=== PATIENT | male | born 1965 | race Caucasian/White ===

== ENCOUNTER 2016-03-26 06:15 | Day surgery (SDC) | payer MEDICARE, OTHER ==
[2016-03-21 09:26] VITALS: BMI 40.4
[~2016-03-26 06:15] MED LIST: ASPIRIN 325 MG TAB PO ONE; SODIUM CHLORIDE 0.9% 1,000 ML in EMPTY BAG 1 BAG IV ONE
[2016-03-26 07:02] VITALS: RESP 16; TEMP 97.8
[2016-03-26] MEDS ORDERED: ALPRAZolam 0.25 MG TAB ONE (07:13)
[2016-03-26] MEDS ORDERED: HYDROcodone/APAP 10-325MG 1 EACH TAB ONE ×2 (07:14→13:23)
[2016-03-26 07:17] LABS: Glucose,Whole Blood 107 mg/dL (75-99)
[2016-03-26] MEDS ORDERED: MIDAZOLAM 2 MG/2 ML VIAL IVP ONE (07:40)
[2016-03-26] MEDS ORDERED: diphenhydrAMINE 50 MG/ML 1 ML VIAL IVP ONE (07:40)
[2016-03-26] MEDS ORDERED: LIDOCAINE 2% INJ 20 MG/ML SQ ONE (07:44)
[2016-03-26] MEDS ORDERED: VERAPAMIL SYRINGE (5 MG/10 ML) INTRAARTER ONE (07:48)
[2016-03-26] MEDS ORDERED: HEPARIN SODIUM 1,000 UNIT/ML VIAL IV ONE (07:51)
[2016-03-26] MEDS ORDERED: IOHEXOL 350 MG/ML 100 ML BOTTLE INJ ONE (08:11)
[2016-03-26] MEDS ORDERED: RX INFO: IV CONTRAST WAS GIVEN 1 EACH MISC MISCELLANE PRN (08:17)
[2016-03-26] MEDS ORDERED: SODIUM CHLORIDE 0.9% 1,000 ML IV SCH (08:30)
[2016-03-26 08:31] LABS: Glucose,Whole Blood 111 mg/dL (75-99)
--- NOTE | 2016-03-26 08:33 | CC ---
DATE OF SERVICE: INDICATION: Unstable angina. PROCEDURE NOTE: After obtaining informed consent, left heart catheterization and coronary angiogram are performed via the right radial artery. The right coronary artery was engaged using 5-Mongolian JR4 catheter and the left was engaged using Ultimate 2. Initially we attempted to access the left coronary artery using a JR4 unsuccessfully. Patient tolerated the procedure well without any obvious immediate complications and radial artery hemostasis was obtained by the standard protocol. FINDINGS: 1. HEMODYNAMICS: Left ventricular end-diastolic pressure is 12 to 14 mm. There is no significant gradient across the aortic valve. 2. LEFT VENTRICULOGRAM: Left ventriculogram was not performed. 3. ANGIOGRAPHIC DATA: LEFT MAIN CORONARY ARTERY: Left main coronary artery is normal size vessel and is free of stenosis. It divides into left anterior descending coronary artery and circumflex coronary artery. LAD and its branches, circumflex coronary artery and its branches are free of significant stenosis. There is mild nonobstructive CAD noted in the circ and the LAD. Right coronary artery is a large dominant vessel and it shows mild atherosclerotic plaque. CONCLUSIONS: 1. Mild nonobstructive coronary artery disease. 2. Normal left ventricular end-diastolic pressures. PLAN: I reviewed angiographic data with the patient and told him that his chest discomfort is noncardiac in origin and his management is going to be in the form optimal medical therapy.
[2016-03-26 13:26] VITALS: PULSE 60
[2016-03-26 14:24] VITALS: BP 110/62
== END 2016-03-26 14:22 | disposition home or self-care (01) ==
LOC: CATHCVL 06:15
PROVIDERS: ATTEND Internal Medicine Cardiovascular Disease
DX: I25.110 Atherosclerotic heart disease of native coronary artery with unstable angina pectoris (principal); I10 Essential (primary) hypertension; E78.2 Mixed hyperlipidemia; E11.9 Type 2 diabetes mellitus without complications; Z79.1 Long term (current) use of non-steroidal anti-inflammatories (NSAID); Z79.82 Long term (current) use of aspirin; Z79.891 Long term (current) use of opiate analgesic; Z79.899 Other long term (current) drug therapy
CPT/HCPCS: 93458; C1769; C1894; J2001; J2250; J1200; Q9967; J1644

== ENCOUNTER 2018-04-29 11:16 | Observation (INO) | payer MEDICARE, OTHER ==
[2018-04-29] MEDS ORDERED: NITROGLYCERIN OINT 1 INCH/GM PACKET TOPICAL STA (12:26)
[2018-04-29] MEDS ORDERED: ASPIRIN 81 MG PO STA (12:26)
--- NOTE | 2018-04-29 12:44 | ED ---
General Adult HPI - General Chief complaint: Chest Pain Stated complaint: chest pain x 7 days progressively worse Time Seen by Provider: 04/29/18 11:40 Source: patient, RN notes reviewed Mode of arrival: ambulatory Limitations: no limitations - History of Present Illness Initial comments: This is a 53-year-old male with a past medical history significant for diabetes hypertension high cholesterol. Patient also states he smokes a lot of marijuana. Patient comes in today because he is having increasing chest pain which radiates to his back. Patient states there is some shortness of breath and some of the chest pain is occasionally worse with exertion. Patient denies any recent fever chills or cough. Patient denies any lightheadedness dizziness or near syncopal episode. Patient denies any headache patient denies any numbness weakness. Patient denies abdominal pain. Patient denies any nausea vomiting diarrhea. Patient denies any increased swelling in the legs or calf tenderness. - Related Data Home Medications Medication Instructions Recorded Confirmed Albuterol Inhaler [Ventolin Hfa 1 - 2 puff INHALATION RT-Q6H PRN 03/21/16 Inhaler] Albuterol Nebulized [Ventolin 2.5 mg INHALATION RT-Q6H 03/21/16 04/29/18 Nebulized] Aspirin 81 mg PO DAILY 03/21/16 04/29/18 Atorvastatin [Lipitor] 20 mg PO HS 03/21/16 04/29/18 Fenofibrate Nanocrystallized 145 mg PO DAILY 03/21/16 04/29/18 [Fenofibrate] Lisinopril [Zestril] 10 mg PO DAILY 03/21/16 04/29/18 Pregabalin [Lyrica] 75 mg PO BID 03/21/16 04/29/18 Fluticasone/Salmeterol [Advair Hfa 2 puff INHALATION RT-BID 04/29/18 04/29/18 230-21 Mcg Inhaler] HYDROcodone/APAP 10-325MG [[place] 1 tab PO Q4H 04/29/18 04/29/18 10-325] Ibuprofen [Motrin] 800 mg PO TID 04/29/18 04/29/18 Nitroglycerin Sl Tabs [Nitrostat] 0.4 mg SL DIRECTED 04/29/18 04/29/18 Ranitidine HCl [Zantac] 150 mg PO BID 04/29/18 04/29/18 busPIRone HCL [Buspar] 15 mg PO BID 04/29/18 04/29/18 metFORMIN HCL [Glucophage] 1,000 mg PO DAILY 04/29/18 04/29/18 Allergies Allergy/AdvReac Type Severity Reaction Status Date / Time No Known Allergies Allergy Verified 04/29/18 12:23 Review of Systems ROS Statement: Those systems with pertinent positive or pertinent negative responses have been documented in the HPI. ROS Other: All systems not noted in ROS Statement are negative. Past Medical History Past Medical History: Asthma, COPD, Diabetes Mellitus, GERD/Reflux, Hyperlipidemia, Hypertension, Neurologic Disorder, Osteoarthritis (OA) Additional Past Medical History / Comment(s): MIGRAINE HEADACHE, History of Any Multi-Drug Resistant Organisms: None Reported Past Surgical History: Appendectomy, Back Surgery, Heart Catheterization, Orthopedic Surgery Additional Past Surgical History / Comment(s): RIGHT KNEE ARTHROSCOPIC, RIGHT ANKLE Past Anesthesia/Blood Transfusion Reactions: No Reported Reaction Past Psychological History: Anxiety Smoking Status: Former smoker Past Alcohol Use History: None Reported Past Drug Use History: Marijuana - Past Family History Mother Family Medical History: No Reported History General Exam - General Exam Comments Initial Comments: GENERAL: Patient is well-developed and well-nourished. Patient is nontoxic and well- hydrated and is in mild distress. ENT: Neck is soft and supple. No significant lymphadenopathy is noted. Oropharynx is clear. Moist mucous membranes. Neck has full range of motion without eliciting any pain. EYES: The sclera were anicteric and conjunctiva were pink and moist. Extraocular movements were intact and pupils were equal round and reactive to light. Eyelids were unremarkable. PULMONARY: Unlabored respirations. Good breath sounds bilaterally. No audible rales rhonchi or wheezing was noted. CARDIOVASCULAR: There is a regular rate and rhythm without any murmurs gallops or rubs. ABDOMEN: Soft and nontender with normal bowel sounds. SKIN: Skin is clear with no lesions or rashes and otherwise unremarkable. NEUROLOGIC: Patient is alert and oriented x3. Cranial nerves II through XII are grossly intact. Motor and sensory are also intact. Normal speech, volume and content. Symmetrical smile. MUSCULOSKELETAL: Normal extremities with adequate strength and full range of motion. LYMPHATICS: No significant lymphadenopathy is noted PSYCHIATRIC: Normal psychiatric evaluation. Normal interpersonal interactions appears functionally intact in deals appropriately with others. No signs of depression. No signs of anxiety. Limitations: no limitations Course Vital Signs 04/29/18 04/29/18 04/29/18 11:38 13:30 14:00 Temperature 97.9 F Pulse Rate 62 51 L 53 L Respiratory 18 14 21 Rate Blood Pressure 103/59 105/73 103/59 O2 Sat by Pulse 96 97 97 Oximetry 04/29/18 04/29/18 14:30 15:00 Temperature Pulse Rate 54 L 52 L Respiratory 16 16 Rate Blood Pressure 98/86 97/55 O2 Sat by Pulse 97 98 Oximetry Medical Decision Making - Medical Decision Making EKG shows sinus bradycardia 56 bpm NV interval 250 QRS is 94 Q-T intervals 440 QTC is 424. Patient's EKG shows no ST segment elevation or depression or T wave abnormalities are noted. Patient's chest x-ray showed no acute abnormality. Patient was given heparin emergency department because of his significant risk factors and is presenting symptoms. I spoke with Dr. Hope he agreed to admit the patient admitted the patient I consult cardiology continued heparin and aspirin and Nitropaste on the floor. - Lab Data Result diagrams: 04/29/18 12:36 04/29/18 12:36 Lab Results 04/29/18 04/29/18 04/29/18 Range/Units 12:36 12:36 12:36 WBC 7.5 (3.8-10.6) k/uL RBC 5.13 (4.30-5.90) m/uL Hgb 15.0 (13.0-17.5) gm/dL Hct 45.9 (39.0-53.0) % MCV 89.4 (80.0-100.0) fL MCH 29.2 (25.0-35.0) pg MCHC 32.6 (31.0-37.0) g/dL RDW 13.9 (11.5-15.5) % Plt Count 324 (150-450) k/uL Neutrophils % 51 % Lymphocytes % 35 % Monocytes % 6 % Eosinophils % 4 % Basophils % 1 % Neutrophils # 3.9 (1.3-7.7) k/uL Lymphocytes # 2.7 (1.0-4.8) k/uL Monocytes # 0.4 (0-1.0) k/uL Eosinophils # 0.3 (0-0.7) k/uL Basophils # 0.1 (0-0.2) k/uL PT (9.0-12.0) sec INR (<1.2) APTT (22.0-30.0) sec Sodium 140 (137-145) mmol/L Potassium 5.0 (3.5-5.1) mmol/L Chloride 110 H (98-107) mmol/L Carbon Dioxide 20 L (22-30) mmol/L Anion Gap 10 mmol/L BUN 18 (9-20) mg/dL Creatinine 0.86 (0.66-1.25) mg/dL Est GFR (CKD-EPI)AfAm >90 (>60 ml/min/1.73 sqM) Est GFR (CKD-EPI)NonAf >90 (>60 ml/min/1.73 sqM) Glucose 85 (74-99) mg/dL Calcium 9.5 (8.4-10.2) mg/dL Magnesium 1.9 (1.6-2.3) mg/dL Total Bilirubin 0.7 (0.2-1.3) mg/dL AST 61 H (17-59) U/L ALT 84 H (21-72) U/L Alkaline Phosphatase 62 (38-126) U/L Total Creatine Kinase 102 (55-170) U/L CK-MB (CK-2) 0.8 (0.0-2.4) ng/mL CK-MB (CK-2) Rel Index 0.8 Troponin I <0.012 (0.000-0.034) ng/mL Total Protein 7.5 (6.3-8.2) g/dL Albumin 4.2 (3.5-5.0) g/dL 04/29/18 Range/Units 12:36 WBC (3.8-10.6) k/uL RBC (4.30-5.90) m/uL Hgb (13.0-17.5) gm/dL Hct (39.0-53.0) % MCV (80.0-100.0) fL MCH (25.0-35.0) pg MCHC (31.0-37.0) g/dL RDW (11.5-15.5) % Plt Count (150-450) k/uL Neutrophils % % Lymphocytes % % Monocytes % % Eosinophils % % Basophils % % Neutrophils # (1.3-7.7) k/uL Lymphocytes # (1.0-4.8) k/uL Monocytes # (0-1.0) k/uL Eosinophils # (0-0.7) k/uL Basophils # (0-0.2) k/uL PT 10.3 (9.0-12.0) sec INR 1.0 (<1.2) APTT 26.2 (22.0-30.0) sec Sodium (137-145) mmol/L Potassium (3.5-5.1) mmol/L Chloride (98-107) mmol/L Carbon Dioxide (22-30) mmol/L Anion Gap mmol/L BUN (9-20) mg/dL Creatinine (0.66-1.25) mg/dL Est GFR (CKD-EPI)AfAm (>60 ml/min/1.73 sqM) Est GFR (CKD-EPI)NonAf (>60 ml/min/1.73 sqM) Glucose (74-99) mg/dL Calcium (8.4-10.2) mg/dL Magnesium (1.6-2.3) mg/dL Total Bilirubin (0.2-1.3) mg/dL AST (17-59) U/L ALT (21-72) U/L Alkaline Phosphatase (38-126) U/L Total Creatine Kinase (55-170) U/L CK-MB (CK-2) (0.0-2.4) ng/mL CK-MB (CK-2) Rel Index Troponin I (0.000-0.034) ng/mL Total Protein (6.3-8.2) g/dL Albumin (3.5-5.0) g/dL Critical Care Time Critical Care Time: Yes Total Critical Care Time: 35 Disposition Clinical Impression: Unstable angina pectoris Disposition: ADMITTED IP TO THIS HOSP Referrals: Piero Hyatt DO [Primary Care Provider] - 1-2 days Time of Disposition: 15:43
[2018-04-29 13:04] LABS: Basophils # (A) 0.1 k/uL (0-0.2); Basophils % (A) 1 %; Eosinophils # (A) 0.3 k/uL (0-0.7); Eosinophils % (A) 4 %; HCT 45.9 % (39.0-53.0); Lymphocytes # (A) 2.7 k/uL (1.0-4.8); Lymphocytes % (A) 35 %; MCH 29.2 pg (25.0-35.0); MCHC 32.6 g/dL (31.0-37.0); MCV 89.4 fL (80.0-100.0); Mean Platelet Volume 6.5; Monocytes # (A) 0.4 k/uL (0-1.0); Monocytes % (A) 6 %; Neutrophils # (A) 3.9 k/uL (1.3-7.7); Neutrophils % (A) 51 %; Platelet Count 324 k/uL (150-450); RBC 5.13 m/uL (4.30-5.90); RDW 13.9 % (11.5-15.5); WBC 7.5 k/uL (3.8-10.6)
[2018-04-29 13:12] LABS: Partial Thromboplastin Time 26.2 sec (22.0-30.0); Prothrombin Time 10.3 sec (9.0-12.0)
[2018-04-29 13:18] LABS: ALT 84 U/L (21-72); AST 61 U/L (17-59); Albumin 4.2 g/dL (3.5-5.0); Alkaline Phosphatase 62 U/L (38-126); Anion Gap 10 mmol/L; Blood Urea Nitrogen 18 mg/dL (9-20); Calcium 9.5 mg/dL (8.4-10.2); Carbon Dioxide 20 mmol/L (22-30); Chloride 110 mmol/L (98-107); Glucose 85 mg/dL (74-99); Magnesium 1.9 mg/dL (1.6-2.3); Sodium 140 mmol/L (137-145); Total Bilirubin 0.7 mg/dL (0.2-1.3); Total Protein 7.5 g/dL (6.3-8.2)
[2018-04-29 13:21] LABS: Creatine Kinase 102 U/L (55-170)
[2018-04-29 13:34] LABS: Creatine Kinase MB 0.8 ng/mL (0.0-2.4); Troponin I <0.012 ng/mL (0.000-0.034)
--- NOTE | 2018-04-29 13:48 | XR ---
EXAMINATION TYPE: XR chest 2V DATE OF EXAM: 04/29/2018 COMPARISON: None INDICATION: Chest pain TECHNIQUE: Frontal and lateral views of the chest are obtained. FINDINGS: The heart size is normal. The pulmonary vasculature is normal. The lungs are clear. IMPRESSION: 1. No acute pulmonary process.
[2018-04-29] MEDS ORDERED: KETOROLAC 30 MG/ML 1 ML VIAL IVP STA (14:14)
[2018-04-29] MEDS ORDERED: HEPARIN SODIUM,PORCINE 5,000 UNIT/ML 1 ML VIAL IV ONE (15:40)
[2018-04-29] MEDS ORDERED: NITROGLYCERIN SL TABS 0.4 MG TAB SUBLINGUAL PRN (15:43)
[2018-04-29] MEDS ORDERED: HEPARIN SOD,PORK IN 0.45% NACL 25,000 UNIT in 0.45% NACL 1 250ML.BAG IV SCH (15:45)
[2018-04-29 16:47] VITALS: RESP 18
[2018-04-29 16:47] LABS: Glucose,Whole Blood 123 mg/dL (75-99)
[2018-04-29 18:34] VITALS: BMI 39.2
[2018-04-29 19:20] LABS: Creatine Kinase 88 U/L (55-170)
[2018-04-29 19:34] LABS: Creatine Kinase MB 0.8 ng/mL (0.0-2.4); Troponin I <0.012 ng/mL (0.000-0.034)
[2018-04-29 20:27] LABS: Glucose,Whole Blood 99 mg/dL (75-99)
[2018-04-29] MEDS: busPIRone HCl 5 MG TAB PO SCH (20:41)
[2018-04-29] MEDS: NITROGLYCERIN OINT 1 INCH/GM PACKET TOPICAL SCH (20:41)
[2018-04-29] MEDS: HYDROcodone/APAP 10-325MG 1 EACH TAB PO PRN (20:42)
[2018-04-29] MEDS: FAMOTIDINE 20 MG TAB PO SCH (20:42)
[2018-04-29] MEDS: PREGABALIN 75 MG CAP PO SCH (20:42)
[2018-04-29] MEDS ORDERED: ATORVASTATIN 20 MG TAB PO SCH (21:00)
[2018-04-29 23:16] LABS: Hemoglobin A1C 7.4 % (4.0-6.0)
[2018-04-29 23:59] LABS: Creatine Kinase 94 U/L (55-170)
[2018-04-30 00:11] LABS: Creatine Kinase MB 0.8 ng/mL (0.0-2.4); Troponin I <0.012 ng/mL (0.000-0.034)
--- NOTE | 2018-04-30 00:11 | P.HPIM ---
History of Present Illness H&P Date: 04/29/18 Chief Complaint: Chest pain Patient is a 53-year-old male with a known history of hypertension, hyperlipidemia, diabetes type 2 [id number], asthma/COPD and also migraine headache, medical marijuana use for chronic low back pain and history of back surgery came to ER with complaints of retrosternal chest pain. Patient had appointment with his PCP today. Patient did complain of chest pain radiating to the left shoulder. Patient did have an EKG at PCPs office and sent to Hospital for further evaluation. Patient has been having dull chest pain on and off for the past few weeks. Patient was also having sweating on and off as well. Denied any fever or chills. No cough or sputum production. No headache or dizziness or lightheadedness. No leg swelling. Patient says that she had a cardiac catheterization about 2 years back. No PCI was done. EKG showed sinus bradycardia Chest x-ray showed no acute cardiopulmonary process Review of Systems Constitutional: Patient denies any fever or chills . No generalized weakness or weight loss. Abdomen: Patient denied nausea vomiting and diarrhea and abdominal pain. Cardiovascular: Patient does have dull chest pain with radiation. No short of breath no palpitations. Respiratory: patient denied any cough is from production. No shortness of breath Neurologic: Patient denied any numbness or tingling headache. Musculoskeletal: Patient denies any complaints of joint swelling or deformity. Skin: Negative Psychiatric: Negative Endocrine: No heat or cold intolerance. No recent weight gain. Genitourinary: No dysuria or hematuria. All other 14 point ROS negative except the above Past Medical History Past Medical History: Asthma, COPD, Diabetes Mellitus, GERD/Reflux, Hyperlipidemia, Hypertension, Neurologic Disorder, Osteoarthritis (OA) Additional Past Medical History / Comment(s): MIGRAINE HEADACHE, History of Any Multi-Drug Resistant Organisms: None Reported Past Surgical History: Appendectomy, Back Surgery, Heart Catheterization, Orthopedic Surgery Additional Past Surgical History / Comment(s): RIGHT KNEE ARTHROSCOPIC, RIGHT ANKLE Past Anesthesia/Blood Transfusion Reactions: No Reported Reaction Past Psychological History: Anxiety Smoking Status: Former smoker Past Alcohol Use History: None Reported Past Drug Use History: Marijuana - Past Family History Mother Family Medical History: No Reported History Father Family Medical History: Myocardial Infarction ([place]) Additional Family Medical History / Comment(s): from mi in his 70's Medications and Allergies Home Medications Medication Instructions Recorded Confirmed Type Albuterol Inhaler [Ventolin Hfa 1 - 2 puff INHALATION RT-Q6H PRN 03/21/16 History Inhaler] Albuterol Nebulized [Ventolin 2.5 mg INHALATION RT-Q6H 03/21/16 04/29/18 History Nebulized] Aspirin 81 mg PO DAILY 03/21/16 04/29/18 History Atorvastatin [Lipitor] 20 mg PO HS 03/21/16 04/29/18 History Fenofibrate Nanocrystallized 145 mg PO DAILY 03/21/16 04/29/18 History [Fenofibrate] Lisinopril [Zestril] 10 mg PO DAILY 03/21/16 04/29/18 History Pregabalin [Lyrica] 75 mg PO BID 03/21/16 04/29/18 History Fluticasone/Salmeterol [Advair Hfa 2 puff INHALATION RT-BID 04/29/18 04/29/18 History 230-21 Mcg Inhaler] HYDROcodone/APAP 10-325MG [[place] 1 tab PO Q4H 04/29/18 04/29/18 History 10-325] Ibuprofen [Motrin] 800 mg PO TID 04/29/18 04/29/18 History Nitroglycerin Sl Tabs [Nitrostat] 0.4 mg SL DIRECTED 04/29/18 04/29/18 History Ranitidine HCl [Zantac] 150 mg PO BID 04/29/18 04/29/18 History busPIRone HCL [Buspar] 15 mg PO BID 04/29/18 04/29/18 History metFORMIN HCL [Glucophage] 1,000 mg PO DAILY 04/29/18 04/29/18 History Allergies Allergy/AdvReac Type Severity Reaction Status Date / Time No Known Allergies Allergy Verified 04/29/18 12:23 Physical Exam Vitals: Vital Signs Temp Pulse Pulse Resp BP BP Pulse Ox 04/29/18 17:06 98 04/29/18 16:45 97.5 F L 50 L 18 101/64 97 04/29/18 16:00 98.9 F 58 L 16 120/65 95 04/29/18 15:00 52 L 16 97/55 98 04/29/18 14:30 54 L 16 98/86 97 04/29/18 14:00 53 L 21 103/59 97 04/29/18 13:30 51 L 14 105/73 97 04/29/18 11:38 97.9 F 62 18 103/59 96 Intake and Output 04/29/18 04/29/18 04/29/18 06:59 14:59 22:59 Other: Voiding Method Toilet # Voids 1 Weight 127.459 kg PHYSICAL EXAMINATION: Patient is lying in the bed comfortably, no acute distress, awake alert and oriented.. HEENT: Normocephalic. Neck is supple. Pupils reactive. Nostrils clear. Oral cavity is moist. Ears reveal no drainage. Neck reveals no JVD, carotid bruits, or thyromegaly. CHEST EXAMINATION: Trachea is central. Symmetrical expansion. Bibasilar diminished air entry. Lung martínez clear to auscultation and percussion. CARDIAC: Normal S1, S2 with no gallops. No murmurs ABDOMEN: Soft. Bowel sounds normal. No organomegaly. No abdominal bruits. Extremities: reveal no edema. No clubbing or cyanosis Neurologically awake, alert, oriented x3 with well-coordinated movements. No focal deficits noted Skin: No rash or skin lesions. Psychiatric: Coperative. Nonsuicidal Musculoskeletal: No joint swelling or deformity. Normal range of motion. Results CBC & Chem 7: 04/29/18 12:36 04/29/18 12:36 Labs: Abnormal Lab Results - Last 24 Hours (Table) 04/29/18 04/29/18 Range/Units 12:36 16:36 Chloride 110 H (98-107) mmol/L Carbon Dioxide 20 L (22-30) mmol/L POC Glucose (mg/dL) 123 H (75-99) mg/dL AST 61 H (17-59) U/L ALT 84 H (21-72) U/L Thrombosis Risk Factor Assmnt - DVT/VTE Prophylaxis DVT/VTE Prophylaxis: Pharmacologic Prophylaxis ordered Assessment and Plan Assessment: Chest pain possible unstable angina History of nonobstructive coronary artery disease. Catheterization 2 years ago Diabetes type 2 nausea and dependent Hypertension Hyperlipidemia Migraine headache Asthma/COPD Previous history of smoking Medical marijuana use Chronic back pain and history of back surgery Anxiety Plan: Patient will be continued on heparin drip. Continue with aspirin statins. Cardiology was consulted. Continue with home blood pressure medications and diabetic medications along with insulin sliding scale. Pain management. Further recommendations based on the clinical course. Time with Patient: Greater than 30
[2018-04-30] MEDS: NITROGLYCERIN OINT 1 INCH/GM PACKET TOPICAL SCH ×2 (01:03→05:14)
[2018-04-30] MEDS: ALBUTEROL NEBULIZED 2.5 MG/3 ML INHALATION SCH ×3 (01:18→13:26)
[2018-04-30] MEDS: HYDROcodone/APAP 10-325MG 1 EACH TAB PO PRN ×2 (03:15→13:22)
[2018-04-30 07:16] LABS: Cholesterol 111 mg/dL (<200); HDL Cholesterol 22 mg/dL (40-60); LDL Cholesterol,Calculated 42 mg/dL (0-99); Triglycerides 236 mg/dL (<150)
[2018-04-30] MEDS ORDERED: SYMBICORT 160-4.5 MCG INHALER INHALATION SCH (08:00)
[2018-04-30 08:01] LABS: Glucose,Whole Blood 112 mg/dL (75-99)
[2018-04-30] MEDS ORDERED: FENOFIBRATE 160 MG TAB PO SCH (09:00)
[2018-04-30] MEDS ORDERED: ASPIRIN 325 MG TAB PO SCH (09:00)
[2018-04-30] MEDS ORDERED: ASPIRIN 81 MG PO SCH (09:00)
[2018-04-30] MEDS ORDERED: metFORMIN 500 MG TAB PO SCH (09:00)
[2018-04-30] MEDS ORDERED: LISINOPRIL 10 MG TAB PO SCH (09:00)
[2018-04-30] MEDS ORDERED: DOBUTamine DRIP for NUC MED 500 MG in DEXTROSE/WATER 1 250ML.BAG IV ONE (11:34)
[2018-04-30 11:53] LABS: Glucose,Whole Blood 104 mg/dL (75-99)
[2018-04-30 12:19] VITALS: BP 115/78; TEMP 97.8
[2018-04-30] MEDS: PREGABALIN 75 MG CAP PO SCH (13:19)
[2018-04-30] MEDS: busPIRone HCl 5 MG TAB PO SCH (13:19)
[2018-04-30] MEDS: FAMOTIDINE 20 MG TAB PO SCH (13:19)
[2018-04-30 13:29] VITALS: PULSE 60
--- NOTE | 2018-04-30 13:51 | ECHOS ---
STRESS ECHOCARDIOGRAM INDICATIONS: Chest pain. BASELINE HEART RATE: 59 BASELINE BLOOD PRESSURE: 97/61 MAXIMUM HEART RATE: 140 MAXIMUM BLOOD PRESSURE: 113/48 85% MPHR: 144 100% MPHR: 169 MAXIMUM STAGE REACHED: 5 TOTAL EXERCISE TIME: 14:15 CLINICAL INFORMATION: Patient was given dobutamine infusion according to the standard protocol. Peak heart rate of 140, was achieved. Maximum blood pressure of 113/48 mmHg was noted. Resting EKG shows normal sinus rhythm with normal NV interval and QRS duration and normal ST-T waves. No ST-segment depression suggestive of ischemia is noted. The baseline echocardiographic images reveals normal left ventricular chamber size with normal left ventricular systolic function at the peak dose of dobutamine infusion. Normal increase in the wall thickness and contractility is noted. FINAL IMPRESSION: This dobutamine stress echocardiographic study is negative for stress-induced ischemia. EKG portion of the stress test is not suggestive of ischemia. MMODL / IJN: [id number] /
--- NOTE | 2018-04-30 14:05 | ECHOF ---
Referral Reason:chest pain MEASUREMENTS -------- HEIGHT: 180.3 cm WEIGHT: 127.5 kg BP: RVIDd: 2.7 cm (< 3.3) IVSd: 1.0 cm (0.6 - 1.1) LVIDd: 4.8 cm (3.9 - 5.3) LVPWd: 1.2 cm (0.6 - 1.1) IVSs: 1.8 cm LVIDs: 3.0 cm LVPWs: 1.8 cm LAESV Index (A-L): 18.35 ml/m Ao Diam: 3.1 cm (2.0 - 3.7) AV Cusp: 1.9 cm (1.5 - 2.6) LA Diam: 4.3 cm (2.7 - 3.8) MV EXCURSION: 21.866 mm (> 18.000) MV EF SLOPE: 104 mm/s (70 - 150) EPSS: 0.6 cm MV E Mg: 0.99 m/s MV DecT: 208 ms MV A Mg: 0.79 m/s MV E/A Ratio: 1.25 RAP: 5.00 mmHg RVSP: 22.24 mmHg FINDINGS -------- Sinus rhythm. This was a technically difficult study with suboptimal views. The left ventricular size is normal. There is borderline concentric left ventricular hypertrophy. Overall left ventricular systolic function is low-normal with, an EF between 50 - 55 %. The right ventricle is normal in size and function. Normal LA size by volume 22+/-6 ml/m2. The right atrium is normal in size. Lumason used The aortic valve is trileaflet and appears structurally normal. There is trace mitral regurgitation. Trace tricuspid regurgitation present. The right ventricular systolic pressure, as measured by Dopp ler, is 22.24mmHg. Pulmonic valve appears structurally normal. The aortic root size is normal. IVC Not well visulized. The pericardium is normal. CONCLUSIONS -------- 1. Sinus rhythm. 2. This was a technically difficult study with suboptimal views. 3. The left ventricular size is normal. 4. There is borderline concentric left ventricular hypertrophy. 5. Overall left ventricular systolic function is low-normal with, an EF between 50 - 55 %. 6. The right ventricle is normal in size and function. 7. Normal LA size by volume 22+/-6 ml/m2. 8. The right atrium is normal in size. 9. Lumason used 10. The aortic valve is trileaflet and appears structurally normal. 11. There is trace mitral regurgitation. 12. Trace tricuspid regurgitation present. 13. The right ventricular systolic pressure, as measured by Doppler, is 22.24mmHg. 14. Pulmonic valve appears structurally normal. 15. The aortic root size is normal. 16. IVC Not well visulized. 17. The pericardium is normal. RECORDER GRAVITY PROSPECTING: Lore Ceballos RDCS
--- NOTE | 2018-04-30 14:09 | P.CRDCN ---
History of Present Illness Consult date: 04/30/18 Consult reason: chest pain Chief complaint: Dull midsternal chest pain. History of present illness: This is a 53-year-old male who presented today complaints of dull mid-sternal chest pain with radiation to his back. Patient states he has a history of asthma, diabetes, and hypertension, high cholesterol and prior cardiac catheterization. Pt laying in bed with no acute distress. Patient states he smokes 1 ounce of marijuana every 2 days. Patient has a history of cardiac cath in 2017 with mild non-obstructive CAD. Patient also states he had a catheterization at [facility] in [place] in July 2017, will obtain records. Patient states he has asthma flares often and continues to smoke marijuana. Patient states he is not sure if the chest pain is from asthma flare or cardiac reasons. EKG done shows SB, rate of 56 beats per minute. Troponins are normal x 1. Chest x-ray showed within normal limit]. No recent echo. Review of Systems At the time of my exam: CONSTITUTIONAL: Denies fever. Denies chills. EYES: Denies blurred vision. Denies vision changes. Denies eye pain. EARS, NOSE, MOUTH & THROAT: Denies headache. Denies sore throat. Denies ear pain. CARDIOVASCULAR: Reports mid-sternal chest pain that radiated to scapula. Reports shortness of breath. Reports chest pain worse with activity and exertion. Denies orthopnea. Denies PND. Denies palpitations. RESPIRATORY: Reports cough. GASTROINTESTINAL: Denies abdominal pain. Denies diarrhea. Denies constipation. Denies nausea. Denies vomiting. MUSCULOSKELETAL: Denies myalgias. INTEGUMENTARY: Denies pruitis. Denies rash. NEUROLOGIC: Denies numbness. Denies tingling. Denies weakness. PSYCHIATRIC: Denies anxiety. Denies depression. ENDOCRINE: Denies fatigue. Denies weight change. Denies polydipsia. Denies polyurina. GENITOURINARY: Denies burning, hematuria or urgency with micturation. HEMATOLOGIC: Denies history of anemia. Denies bleeding. Past Medical History Past Medical History: Asthma, COPD, Diabetes Mellitus, GERD/Reflux, Hyperlipidemia, Hypertension, Neurologic Disorder, Osteoarthritis (OA) Additional Past Medical History / Comment(s): MIGRAINE HEADACHE, History of Any Multi-Drug Resistant Organisms: None Reported Past Surgical History: Appendectomy, Back Surgery, Heart Catheterization, Orthopedic Surgery Additional Past Surgical History / Comment(s): RIGHT KNEE ARTHROSCOPIC, RIGHT ANKLE Past Anesthesia/Blood Transfusion Reactions: No Reported Reaction Past Psychological History: Anxiety Additional Psychological History / Comment(s): pt is on disability, lives with and 11 year old daughter, drives. has cane, walker and nebulizer at home, no home care services, Smoking Status: Former smoker Past Alcohol Use History: None Reported Additional Past Alcohol Use History / Comment(s): STARTED SMOKING AGE 16 QUIT SMOKING AT AGE 27 SMOKED 1/2 PACK PER WEEK Past Drug Use History: Marijuana Additional Drug Use History / Comment(s): SMOKES MARIJUANA DAILY (HAS A MEDICAL CARD ) - Past Family History Mother Family Medical History: No Reported History Father Family Medical History: Myocardial Infarction ([place]) Additional Family Medical History / Comment(s): from [place] in his 70's Medications and Allergies Home Medications Medication Instructions Recorded Confirmed Type Albuterol Inhaler [Ventolin Hfa 1 - 2 puff INHALATION RT-Q6H PRN 03/21/16 History Inhaler] Albuterol Nebulized [Ventolin 2.5 mg INHALATION RT-Q6H 03/21/16 04/29/18 History Nebulized] Aspirin 81 mg PO DAILY 03/21/16 04/29/18 History Atorvastatin [Lipitor] 20 mg PO HS 03/21/16 04/29/18 History Fenofibrate Nanocrystallized 145 mg PO DAILY 03/21/16 04/29/18 History [Fenofibrate] Lisinopril [Zestril] 10 mg PO DAILY 03/21/16 04/29/18 History Pregabalin [Lyrica] 75 mg PO BID 03/21/16 04/29/18 History Fluticasone/Salmeterol [Advair Hfa 2 puff INHALATION RT-BID 04/29/18 04/29/18 History 230-21 Mcg Inhaler] HYDROcodone/APAP 10-325MG [[place] 1 tab PO Q4H 04/29/18 04/29/18 History 10-325] Ibuprofen [Motrin] 800 mg PO TID 04/29/18 04/29/18 History Nitroglycerin Sl Tabs [Nitrostat] 0.4 mg SL DIRECTED 04/29/18 04/29/18 History Ranitidine HCl [Zantac] 150 mg PO BID 04/29/18 04/29/18 History busPIRone HCL [Buspar] 15 mg PO BID 04/29/18 04/29/18 History metFORMIN HCL [Glucophage] 1,000 mg PO DAILY 04/29/18 04/29/18 History Allergies Allergy/AdvReac Type Severity Reaction Status Date / Time No Known Allergies Allergy Verified 04/29/18 12:23 Physical Exam Vitals: Vital Signs Temp Pulse Pulse Resp BP BP Pulse Ox 04/30/18 13:36 60 04/30/18 13:27 60 04/30/18 12:00 97.8 F 59 L 18 115/78 97 04/30/18 08:00 97.5 F L 61 18 152/70 96 04/30/18 07:44 60 04/30/18 07:30 56 L 04/30/18 04:00 98.5 F 51 L 16 122/75 94 L 04/30/18 01:26 62 04/30/18 01:20 60 04/30/18 00:00 98.0 F 56 L 16 117/71 96 04/29/18 20:34 97.6 F 63 139/85 93 L 04/29/18 20:00 18 04/29/18 17:06 98 04/29/18 16:45 97.5 F L 50 L 18 101/64 97 04/29/18 16:00 98.9 F 58 L 16 120/65 95 04/29/18 15:00 52 L 16 97/55 98 04/29/18 14:30 54 L 16 98/86 97 04/29/18 14:00 53 L 21 103/59 97 Intake and Output 04/29/18 04/30/18 04/30/18 22:59 06:59 14:59 Intake Total 118 88.578 200 Balance 118 88.578 200 Intake: Intake, IV Titration 88.578 Amount Heparin Sod,Pork in 0.45% 88.578 NaCl 25,000 unit In 0.45 % NaCl 1 250ml.bag @ 7.84 UNITS/KG/HR 9.99 mls/hr IV .Q24H [facility] Rx#: [id number] Oral 118 200 Other: Voiding Method Toilet Toilet Toilet # Voids 1 2 GENERAL: This is a 53 year old male in no apparent distress at the time of my examination. HEENT: Head is atraumatic, normocephalic. Pupils are equal, round. Sclerae anicteric. Conjunctivae are clear. Mucous membranes of the mouth are moist. Neck is supple. There is no jugular venous distention. No carotid bruit is heard. LUNGS: Noted bilateral wheezes. No rales or rhonchi. No chest wall tenderness is noted on palpation or with deep breathing. HEART: Regular rate and rhythm without murmurs, rubs or gallops. S1 and S2 heard. ABDOMEN: Soft, nontender. Bowel sounds are heard. No organomegaly noted. EXTREMITIES: No evidence of peripheral edema and no calf tenderness noted. VASCULAR: Radial and dorsalis pedis pulses palpated, no evidence of clubbing. NEUROLOGIC: Patient not distressed, awake, alert and oriented x3. Results 04/29/18 12:36 04/29/18 12:36 Cardiac Enzymes 04/29/18 04/29/18 Range/Units 18:33 23:08 CK-MB (CK-2) 0.8 0.8 (0.0-2.4) ng/mL Troponin I <0.012 <0.012 (0.000-0.034) ng/mL Coagulation 04/29/18 04/30/18 Range/Units 23:08 06:16 APTT 30.9 H 38.3 H (22.0-30.0) sec Lipids 04/30/18 Range/Units 06:16 Triglycerides 236 H (<150) mg/dL Cholesterol 111 (<200) mg/dL HDL Cholesterol 22 L (40-60) mg/dL Current Medications Generic Name Dose Route Start Last Admin Trade Name Freq PRN Reason Stop Dose Admin Hydrocodone Bitart/Acetaminophen 1 each 04/29/18 20:30 04/30/18 13:22 [place] 10 PO 1 each Q4H PRN Administration Pain Albuterol Sulfate 2.5 mg 04/30/18 02:00 04/30/18 13:26 Ventolin Nebulized INHALATION 2.5 mg RT-Q6H [facility]NA Administration Aspirin 325 mg 04/30/18 09:00 04/30/18 13:19 Aspirin PO 325 mg DAILY [facility]NA Administration Atorvastatin Calcium 20 mg 04/29/18 21:00 04/29/18 20:42 Lipitor PO 20 mg HS [facility]NA Administration Budesonide/Formoterol Fumarate 2 puff 04/30/18 08:00 04/30/18 07:30 Symbicort 160-4.5 Mcg Inhaler INHALATION 2 puff RT-BID LENA Administration Buspirone HCl 15 mg 04/29/18 21:00 04/30/18 13:19 Buspar PO 15 mg BID LENA Administration Famotidine 20 mg 04/29/18 21:00 04/30/18 13:19 Pepcid PO 20 mg BID LENA Administration Fenofibrate 160 mg 04/30/18 09:00 04/30/18 13:19 Lofibra PO 160 mg DAILY [facility] Administration Dobutamine HCl/Dextrose 500 mg 250 mls @ 38.23 mls/hr 04/30/18 11:34 / IV Solution IV 04/30/18 18:06 .Q6H33M ONE Protocol 10 MCG/KG/MIN Lisinopril 10 mg 04/30/18 09:00 04/30/18 13:19 Zestril PO 10 mg DAILY [facility] Administration Metformin HCl 1,000 mg 04/30/18 09:00 04/30/18 13:18 Glucophage PO 1,000 mg DAILY [facility] Administration Nitroglycerin 1 inch 04/29/18 18:00 04/30/18 05:14 Nitro-Bid Oint TOPICAL Not Given Q6HR [facility] Nitroglycerin 0.4 mg 04/29/18 15:43 Nitrostat SUBLINGUAL Q5M PRN Chest Pain Pregabalin 75 mg 04/29/18 21:00 04/30/18 13:19 Lyrica PO 75 mg BID [facility] Administration Intake and Output 04/29/18 04/30/18 04/30/18 22:59 06:59 14:59 Intake Total 118 88.578 200 Balance 118 88.578 200 Intake: Intake, IV Titration 88.578 Amount Heparin Sod,Pork in 0.45% 88.578 NaCl 25,000 unit In 0.45 % NaCl 1 250ml.bag @ 7.84 UNITS/KG/HR 9.99 mls/hr IV .Q24H [facility] Rx#: [id number] Oral 118 200 Other: Voiding Method Toilet Toilet Toilet # Voids 1 2 04/29/18 12:36 04/29/18 12:36 Assessment and Plan (1) Unstable angina pectoris Current Visit: Yes Status: Acute Code(s): I20.0 - UNSTABLE ANGINA SNOMED Code(s): 3614339 Plan: Plan for dobutamine stress echo this pm. Pt able to eat cardiac diet. Continue all current medical/medication regime. Plan of care discussed with patient. Will continue to follow.
--- NOTE | 2018-04-30 23:57 | P.DS ---
Providers Date of admission: 04/29/18 15:43 Expected date of discharge: 04/30/18 Attending physician: Keena Hope Consults: 04/29/18 15:43 Consult Physician Urgent Consulting Provider: [facility] Consult Reason/Comments: Unstable angina Do you want consulting provider notified?: Yes Primary care physician: [facility] Course: Discharge diagnosis Chest pain possible unstable angina. Negative stress echo. Possible GI related. History of nonobstructive coronary artery disease. Catheterization 2 years ago Diabetes type 2 nausea and dependent Hypertension Hyperlipidemia Migraine headache Asthma/COPD Previous history of smoking Medical marijuana use Chronic back pain and history of back surgery Anxiety Morbid obesity with BMI 39.2 Hospital course Patient is a 53-year-old male with a known history of hypertension, hyperlipidemia, diabetes type 2 [id number], asthma/COPD and also migraine headache, medical marijuana use for chronic low back pain and history of back surgery came to ER with complaints of retrosternal chest pain. Patient had appointment with his PCP today. Patient did complain of chest pain radiating to the left shoulder. Patient did have an EKG at PCPs office and sent to Hospital for further evaluation. Patient has been having dull chest pain on and off for the past few weeks. Patient was also having sweating on and off as well. Denied any fever or chills. No cough or sputum production. No headache or dizziness or lightheadedness. No leg swelling. Patient says that she had a cardiac catheterization about 2 years back. No PCI was done. EKG showed sinus bradycardia Chest x-ray showed no acute cardiopulmonary process. Plan: Patient was continued on heparin drip. Continue with aspirin statins. Continue with home blood pressure medications and diabetic medications along with insulin sliding scale. Pain management. Motrin has been held. Patient was seen by cardiology and recommended stress echocardiogram. Stress echo is negative study. Patient was advised to continue on ranitidine twice a day and hold Motrin at home. Patient is otherwise stable to be discharged home. Discharge physical examination was done and vitals reviewed. Patient Condition at Discharge: Fair Plan - Discharge Summary Discharge Rx Participant: Yes New Discharge Prescriptions: Continue Albuterol Inhaler [Ventolin Hfa Inhaler] 1 - 2 puff INHALATION RT-Q6H PRN PRN Reason: Shortness Of Breath Albuterol Nebulized [Ventolin Nebulized] 2.5 mg INHALATION RT-Q6H Aspirin 81 mg PO DAILY Fenofibrate Nanocrystallized [Fenofibrate] 145 mg PO DAILY Pregabalin [Lyrica] 75 mg PO BID Lisinopril [Zestril] 10 mg PO DAILY Atorvastatin [Lipitor] 20 mg PO HS busPIRone HCL [Buspar] 15 mg PO BID Nitroglycerin Sl Tabs [Nitrostat] 0.4 mg SL DIRECTED Fluticasone/Salmeterol [Advair Hfa 230-21 Mcg Inhaler] 2 puff INHALATION RT- BID HYDROcodone/APAP 10-325MG [[place] 10-325] 1 tab PO Q4H metFORMIN HCL [Glucophage] 1,000 mg PO DAILY Ranitidine HCl [Zantac] 150 mg PO BID Discontinued Ibuprofen [Motrin] 800 mg PO TID Discharge Medication List Albuterol Inhaler [Ventolin Hfa Inhaler] 1 - 2 puff INHALATION RT-Q6H PRN [History] Albuterol Nebulized [Ventolin Nebulized] 2.5 mg INHALATION RT-Q6H 03/21/16 [ History] Aspirin 81 mg PO DAILY 03/21/16 [History] Atorvastatin [Lipitor] 20 mg PO HS 03/21/16 [History] Fenofibrate Nanocrystallized [Fenofibrate] 145 mg PO DAILY 03/21/16 [History] Lisinopril [Zestril] 10 mg PO DAILY 03/21/16 [History] Pregabalin [Lyrica] 75 mg PO BID 03/21/16 [History] Fluticasone/Salmeterol [Advair Hfa 230-21 Mcg Inhaler] 2 puff INHALATION RT-BID 04/29/18 [History] HYDROcodone/APAP 10-325MG [[place] 10-325] 1 tab PO Q4H 04/29/18 [History] Nitroglycerin Sl Tabs [Nitrostat] 0.4 mg SL DIRECTED 04/29/18 [History] Ranitidine HCl [Zantac] 150 mg PO BID 04/29/18 [History] busPIRone HCL [Buspar] 15 mg PO BID 04/29/18 [History] metFORMIN HCL [Glucophage] 1,000 mg PO DAILY 04/29/18 [History] Follow up Appointment(s)/Referral(s): Piero Hyatt DO [Primary Care Provider] - 1-2 days Denisse Constantino MD [STAFF PHYSICIAN] - 1 Week Patient Instructions/Handouts: Chest Pain (GEN) Discharge Disposition: HOME SELF-CARE
== END 2018-04-30 15:11 | disposition home or self-care (01) ==
LOC: EC 11:16 → 1SOBS 15:43
PROVIDERS: ADMIT Internal Medicine; ATTEND Internal Medicine
DX: R07.89 Other chest pain (principal); R61 Generalized hyperhidrosis; I25.10 Atherosclerotic heart disease of native coronary artery without angina pectoris; E78.5 Hyperlipidemia, unspecified; R06.02 Shortness of breath; E78.00 Pure hypercholesterolemia, unspecified; E11.9 Type 2 diabetes mellitus without complications; K21.9 Gastro-esophageal reflux disease without esophagitis; I10 Essential (primary) hypertension; M19.90 Unspecified osteoarthritis, unspecified site; R00.1 Bradycardia, unspecified; G43.909 Migraine, unspecified, not intractable, without status migrainosus; J44.9 Chronic obstructive pulmonary disease, unspecified; G89.29 Other chronic pain; M54.5 Low back pain; F41.9 Anxiety disorder, unspecified; E66.01 Morbid (severe) obesity due to excess calories; Z68.39 Body mass index [BMI] 39.0-39.9, adult; Z79.82 Long term (current) use of aspirin; Z79.51 Long term (current) use of inhaled steroids; Z79.1 Long term (current) use of non-steroidal anti-inflammatories (NSAID); Z79.84 Long term (current) use of oral hypoglycemic drugs; Z79.899 Other long term (current) drug therapy; Z87.891 Personal history of nicotine dependence; Z90.49 Acquired absence of other specified parts of digestive tract; Z82.49 Family history of ischemic heart disease and other diseases of the circulatory system
CPT/HCPCS: 96366 ×2; 96376; 96365; 96375; 99291; 36415; 94640 ×2; 80061; 80053; 82550; 82553; 83735; 84484; 85025; 85610; 85730 ×2; 83036; 71046; G0378 ×2; C8929; C8930; J1250; J1644 ×2; J1885; Q9950; 93306; 93351

== ENCOUNTER → 2019-05-20 | Day surgery (SDC) | payer MEDICARE, OTHER ==
[2019-05-18 10:15] VITALS: BMI 37.0
[~2019-05-20] MED LIST changes: -ASPIRIN 325 MG TAB PO ONE; +LACTATED RINGERS 1,000 ML IV SCH; +LIDOCAINE 1% (10MG/ML) FOR IV START INTRADERMA PRN; +LIDOCAINE 1% INJ 10MG/ML (20 ML MDV) ONE; +PROPOFOL 10 MG/ML 20 ML VIAL IV ONE; -SODIUM CHLORIDE 0.9% 1,000 ML in EMPTY BAG 1 BAG IV ONE
[2019-05-20 08:26] VITALS: TEMP 97.7
[2019-05-20 08:29] LABS: Glucose,Whole Blood 132 mg/dL (75-99)
--- NOTE | 2019-05-20 09:03 | P.PCN ---
Date of Procedure: 05/20/19 Procedure(s) Performed: BRIEF HISTORY: Patient is a 54-year-old pleasant male scheduled for an elective colonoscopy as a part of screening for colorectal neoplasia. PROCEDURE PERFORMED: Colonoscopy. PREOPERATIVE DIAGNOSIS: Screening for colon cancer. IV sedation per Anesthesia. PROCEDURE: After informed consent was obtained, the patient, was brought into the endoscopy unit. IV sedation was administered by Anesthesia under continuous monitoring. Digital rectal examination was normal. Initially the Olympus CF-160 flexible video colonoscope was then inserted in the rectum, gradually advanced into the cecum without any difficulty. Careful examination was performed as the scope was gradually being withdrawn. Ileocecal valve and the appendiceal orifice were visualized and appeared normal. Prep was excellent. Mucosa of the cecum, ascending colon, transverse colon, descending colon, sigmoid colon, and rectum appeared normal. Retroflexion was performed in the rectum and small internal hemorrhoids were seen. The patient tolerated the procedure well. IMPRESSION: Normal-appearing colon from rectum to cecum with no evidence of colorectal neoplasia. Small internal hemorrhoids. RECOMMENDATIONS: Findings of this examination were discussed with the patient as well as his family.. He was advised to have a repeat screening colonoscopy in 10 years.
[2019-05-20 09:07] VITALS: RESP 17
[2019-05-20 09:13] VITALS: BP 122/81; PULSE 61
== END ==
LOC: ORWHC2ENDO 08:01
PROVIDERS: ATTEND Internal Medicine Gastroenterology
DX: Z12.11 Encounter for screening for malignant neoplasm of colon (principal); K64.8 Other hemorrhoids; I10 Essential (primary) hypertension; E78.5 Hyperlipidemia, unspecified; K21.9 Gastro-esophageal reflux disease without esophagitis; G43.909 Migraine, unspecified, not intractable, without status migrainosus; J44.9 Chronic obstructive pulmonary disease, unspecified; Z87.891 Personal history of nicotine dependence; E11.9 Type 2 diabetes mellitus without complications; Z79.84 Long term (current) use of oral hypoglycemic drugs; Z79.82 Long term (current) use of aspirin; Z79.891 Long term (current) use of opiate analgesic; Z79.899 Other long term (current) drug therapy
CPT/HCPCS: J2001; J2704; G0121; 45378

== ENCOUNTER 2020-09-23 | Emergency (ER) | payer BC, OTHER | END 2020-09-23 22:40 | disposition home or self-care (01) ==

== ENCOUNTER → 2020-10-04 | Outpatient (CLI) | payer MEDICARE, OTHER ==
--- NOTE | 2020-10-04 12:33 | XR ---
EXAMINATION TYPE: XR chest 2V DATE OF EXAM: 10/04/2020 COMPARISON: 04/29/2018 HISTORY: Smoker TECHNIQUE: Frontal and lateral views of the chest are obtained. FINDINGS: There is no focal air space opacity, pleural effusion, or pneumothorax seen. The cardiac silhouette size is within normal limits. The osseous structures are intact. IMPRESSION: No acute cardiopulmonary process.
== END | disposition home or self-care (01) ==
LOC: RADXRMAIN 12:06
PROVIDERS: ATTEND Family Medicine
DX: J44.9 Chronic obstructive pulmonary disease, unspecified (principal)
CPT/HCPCS: 71046

== ENCOUNTER → 2021-01-07 | Outpatient (CLI) | payer BC, OTHER | END | disposition home or self-care (01) | LOC: LABWHC1 12:38 | PROVIDERS: ATTEND Family Medicine | DX: U07.1 COVID-19 (principal) | CPT/HCPCS: U0003; C9803 ==